=== PATIENT | female | born 1945 | race Caucasian/White ===

== ENCOUNTER 2021-05-23 12:31 | Emergency (ER) | payer OTHER, MEDICARE ==
[2021-05-23 13:24] LABS: BASOPHIL 0.7 % (0-2); EOSINOPHIL 1.4 % (0-7); HGB 14.5 g/dl (12.5-16.0); LYMPHOCYTE 21.5 % (15-48); MCH 27.7 pg (25.0-31.0); MCHC 31.5 g/dL (32.0-36.0); MCV 87.8 fL (78.0-100.0); MONOCYTE 9.2 % (0-12); MPV 9.9 fL (6.0-9.5); NEUTROPHIL 66.4 % (41-80); NRBC 0; PLT 208 K/uL (150-400); RBC 5.24 M/uL (4.20-5.40); RDW 15.4 % (11.5-14.0); WBC 9.6 K/uL (4.0-10.5)
[2021-05-23 13:49] LABS: ALBUMIN 3.9 g/dL (3.4-5.0); BILIRUBIN - TOTAL 0.6 mg/dL (0.2-1.0); BUN/CREAT RATIO (CALC) 18.1 RATIO; CREATININE 0.83 mg/dL (0.51-0.95); GLOBULIN (CALCULATION) 3.5 g/dL; POTASSIUM 3.3 mmol/L (3.5-5.1); TOTAL PROTEIN 7.4 g/dL (6.4-8.2)
[2021-05-23] MEDS ORDERED: NORCO 5-325 TA1 EACH PO (15:51)
[2021-05-23] MEDS ORDERED: ONDANSETRON ODT4 MG PO (15:51)
== END 2021-05-23 15:54 | disposition home or self-care (01) ==
LOC: FER 12:31
PROVIDERS: Emergency Medicine
DX: S12.500A Unspecified displaced fracture of sixth cervical vertebra, initial encounter for closed fracture (principal); S12.600A Unspecified displaced fracture of seventh cervical vertebra, initial encounter for closed fracture; S22.31XA Fracture of one rib, right side, initial encounter for closed fracture; S22.21XA Fracture of manubrium, initial encounter for closed fracture; S93.401A Sprain of unspecified ligament of right ankle, initial encounter; S20.212A Contusion of left front wall of thorax, initial encounter; I10 Essential (primary) hypertension; Z79.899 Other long term (current) drug therapy; V89.2XXA Person injured in unspecified motor-vehicle accident, traffic, initial encounter
CPT/HCPCS: 36415; 70450; 71250; 72125; 72128; 73610; 80053; 84484; 85025; 93005; Q9967